=== PATIENT | male | born 1990 | race Caucasian/White ===

== ENCOUNTER 2022-07-28 10:50 | Emergency (ER) | payer OTHER ==
[~2022-07-28] VITALS: Ht 172.7 cm; Wt 86.4 kg
[2022-07-28] MEDS ORDERED: ONDA-104 PO (11:05)
[2022-07-28] MEDS ORDERED: FOLI-130 PO (11:05)
[2022-07-28] MEDS ORDERED: OMEP20 PO (11:05)
[2022-07-28] MEDS ORDERED: LIB25 PO (11:05)
[2022-07-28] MEDS ORDERED: SITA100 PO (11:05)
[2022-07-28] MEDS ORDERED: AMLO-257 PO (11:05)
[2022-07-28] MEDS ORDERED: SODIUM CHLORIDE 0.9% 100 ML ONE (14:54)
[2022-07-28] MEDS ORDERED: IOHEXOL 350 MG/ML 100 ML VIAL ONE (14:54)
[2022-07-28 19:17] VITALS: BP 141/83
== END 2022-07-28 19:49 | disposition home or self-care (01) ==
LOC: EMS 10:56
DX: F10.220 Alcohol dependence with intoxication, uncomplicated (principal); F32.A Depression, unspecified; E11.9 Type 2 diabetes mellitus without complications; I10 Essential (primary) hypertension; K21.9 Gastro-esophageal reflux disease without esophagitis; Z79.899 Other long term (current) drug therapy; Y90.9 Presence of alcohol in blood, level not specified
CPT/HCPCS: 99285; 82948; Q9967; J7050